=== PATIENT | female | born 2005 | race American Indian/Alaskan Native ===

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

== ENCOUNTER → 2024-05-29 | Outpatient (CLI) | payer BC ==
[2024-05-29 18:16] LABS: Basophils # (A) 0.07 X 10*3/uL (0.00-0.10); Eosinophils # (A) 0.18 X 10*3/uL (0.04-0.35); Eosinophils % (A) 2.5 %; HCT 49.2 % (37.2-46.3); HGB 14.9 g/dL (12.0-15.0); Lymphocytes # (A) 2.36 X 10*3/uL (0.90-5.00); Lymphocytes % (A) 32.2 %; MCH 26.3 pg (27.0-32.0); MCHC 30.3 g/dL (32.0-37.0); MCV 86.8 FL (80.0-97.0); Mean Platelet Volume 15.6 FL (9.5-12.2); Monocytes # (A) 0.82 X 10*3/uL (0.20-1.00); Monocytes % (A) 11.2 %; NRBC Per 100 WBC 0 X 10*3/uL (0.00-0.01); Neutrophils # (A) 3.89 X 10*3/uL (1.80-7.70); Neutrophils % (A) 52.8 %; Platelet Count 180 X 10*3/uL (140-440); RBC 5.67 X 10*6/uL (4.10-5.20); RDW 13.1 % (11.5-14.5); WBC 7.34 X 10*3/uL (4.50-10.00)
== END | disposition home or self-care (01) ==
LOC: LABWHC1 13:35
DX: F64.9 Gender identity disorder, unspecified (principal)
CPT/HCPCS: 36415; 85025